=== PATIENT | male | born 1965 | race Hispanic/Latino ===

== ENCOUNTER → 2018-05-24 | Day surgery (SDC) | payer BC ==
[~2018-05-24] MED LIST: FENTANYL CITRATE/PF 100MCG/2 ML INJ ONE; GLIPIZIDE5 MG PO; HYOSCYAMINE SULFATE 0.5 MG/ML AMP ONE; LISINOPRIL2.5 MG PO; METFORMIN HCL500 MG PO; MIDAZOLAM HCL 2 MG/2 ML VIAL ONE; PROPOFOL IV EMULSION 10 MG/ML 50 ML VIAL ONE; SIMVASTATIN20 MG PO
--- NOTE | 2018-05-24 15:46 | Operative Report ---
DATE OF PROCEDURE: May 24, 2018 REFERRING PHYSICIAN: Dr. Lauri Cheung PROCEDURE PERFORMED: Colonoscopy and polypectomy. INDICATION FOR COLONOSCOPY: Colorectal cancer screening. MEDICATION: Patient was done under MAC. Please see anesthesiologist's note. PROCEDURE: With the patient in the left lateral decubitus position, the flexible fiberoptic Olympus colonoscope was inserted into the rectum with ease and advanced all the way to the cecum. Two polyps were snared from the cecum. The ascending colon appeared to be within normal limits. One polyp was hot biopsied from the transverse colon. The descending grossly appeared to be within normal limits. One polyp was hot biopsied from the sigmoid. One polyp was hot biopsied from the rectum. The scope was then retroflexed into the distal rectum, and small internal hemorrhoids were noted, none of which was actively bleeding. The scope was then straightened out. The rectosigmoid area as well as the distal rectal area were decompressed. The scope was subsequently withdrawn. Patient tolerated the procedure well. IMPRESSION 1. Cecal polyps times 2, snared. 2. Transverse colon polyp, hot biopsied. 3. Sigmoid colon polyp, hot biopsied. 4. Rectal polyp, hot biopsied. 5. Internal hemorrhoids, none actively bleeding. PLAN: Follow up histology. Initiate high-fiber, low-fat diet. Initiate high-fiber supplement. Patient will need a followup colonoscopy in 3 years. Job#: [id number] cc:ELENA CHEUNG DO
== END | disposition home or self-care (01) ==
LOC: ENDO 06:53
PROVIDERS: ATTEND Internal Medicine Gastroenterology
DX: Z12.11 Encounter for screening for malignant neoplasm of colon (principal); R12 Heartburn; I10 Essential (primary) hypertension; E78.5 Hyperlipidemia, unspecified; D12.0 Benign neoplasm of cecum; K63.5 Polyp of colon; K64.8 Other hemorrhoids; K62.1 Rectal polyp
CPT/HCPCS: 36415; 45384; 45385; 82948; 93005; J1980; J2250; 45378

== ENCOUNTER 2018-05-27 08:16 | Inpatient (IN) | payer BC ==
[~2018-05-27] VITALS: Ht 175.3 cm; Wt 85.4 kg
[2018-05-27] VITALS (41 sets, daily range): BP systolic 92–142; BP diastolic 55–87
[~2018-05-27 08:16] MED LIST changes: -FENTANYL CITRATE/PF 100MCG/2 ML INJ ONE; -HYOSCYAMINE SULFATE 0.5 MG/ML AMP ONE; -MIDAZOLAM HCL 2 MG/2 ML VIAL ONE; -PROPOFOL IV EMULSION 10 MG/ML 50 ML VIAL ONE
[2018-05-27] MEDS ORDERED: SODIUM CHLORIDE 0.9% 1000ML 1,000 ML ONE ×2 (08:42→08:46)
[2018-05-27] MEDS ORDERED: PANTOPRAZOLE 40 MG 10ML VIAL IV STA (08:43)
[2018-05-27] MEDS ORDERED: SODIUM CHLORIDE 0.9% 1000ML 1,000 ML IV SCH (08:45)
[2018-05-27] MEDS ORDERED: SODIUM CHLORIDE 0.9% 1000ML 1,000 ML IV ONE ×2 (08:51→09:00)
[2018-05-27 08:56] LABS: BASOPHILS % 0.2 % (0.0-1.0); EOSINOPHILS # (AUTO) 0.1 (0.0-0.4); EOSINOPHILS % 0.6 % (0.0-6.0); HEMATOCRIT 25.6 % (38.2-49.6); LYMPHOCYTES # (AUTO) 1.8 (1.0-3.2); MEAN CORPUSCULAR HEMOGLOBIN 29.2 pg (28-32); MEAN CORPUSCULAR HGB CONC 35.2 g/dL (31-35); MEAN CORPUSCULAR VOLUME 83.1 fL (81-99); MONOCYTES # (AUTO) 0.6 (0.2-0.8); NEUTROPHILS % 73.5 % (38.7-80.0); PLATELET COUNT 219 x10e3/uL (140-360); RED BLOOD COUNT 3.08 x10e6/uL (4.3-5.7); RED CELL DISTRIBUTION WIDTH 12.7 % (11.7-14.4)
[2018-05-27 09:05] LABS: INR 1.09; PARTIAL THROMBOPLASTIN TIME 22.5 seconds (23.8-35.5); PROTHROMBIN TIME 13.3 seconds (11.9-14.5)
[2018-05-27 09:13] LABS: ALANINE AMINOTRANSFERASE 25 IU/L (0-55); ALBUMIN 3.3 g/dL (3.5-5.0); ALBUMIN/GLOBULIN RATIO 1.3 (0.8-2.0); ALKALINE PHOSPHATASE 72 IU/L (40-150); BLOOD UREA NITROGEN 18 mg/dL (7-26); BUN/CREATININE RATIO 23 (6-25); CALCIUM 8.2 mg/dL (8.4-10.2); CARBON DIOXIDE 23 mmol/L (22-29); CHLORIDE 105 mmol/L (98-107); CREATINE KINASE 55 IU/L (30-200); CREATININE, SERUM 0.78 mg/dL (0.72-1.25); EST GLOMERULAR FILTRATION RATE > 60 ML/MIN (60-); GLUCOSE 254 mg/dL (74-118); MAGNESIUM 1.5 MG/DL (1.3-2.1); SODIUM 136 mmol/L (136-145)
[2018-05-27] MEDS ORDERED: PHYTONADIONE 10 MG/ML AMP SC ONE (10:45)
[2018-05-27] MEDS ORDERED: SODIUM CHLORIDE 0.9% 250ML 250 ML IV ONE (10:45)
[2018-05-27] MEDS ORDERED: PIPER-TAZ 3.375 GM 50 ML IV ONE (11:00)
[2018-05-27] MEDS: SODIUM CHLORIDE 0.9% 1000ML 1,000 ML IV SCH ×3 (13:15→20:37)
--- NOTE | 2018-05-27 18:23 | History and Physical ---
HISTORY OF PRESENT ILLNESS: Patient is a 52-year-old male who had a past medical history positive for diabetes mellitus mainly, no other significant medical past medical history. Apparently had a colonoscopy done on Saturday by Dr. Frankie Munroe. He was doing well but then yesterday and today he started seeing blood in the stool, feeling weak and he came to the emergency room. REVIEW OF SYSTEMS: CARDIOVASCULAR: No chest pain or palpitation. RESPIRATORY: No shortness of breath. No cough. GASTROINTESTINAL: No nausea, no vomiting, no diarrhea. He had blood in the stools. No abdominal pain. GENITOURINARY: No frequency or dysuria. ALLERGIES: NOT ALLERGIC TO ANY MEDICATION. SOCIAL HISTORY: He does not smoke and he does not drink. PAST MEDICAL HISTORY: Positive for diabetes mellitus type 2. PHYSICAL EXAMINATION: VITAL SIGNS: Blood pressure 115/69, temperature 99.2, heart rate 87 per minute, respiratory rate 18 per minute. Oxygen saturation 100%. HEART: Regular rhythm. No murmur. No extra sounds. LUNGS: Clear bilaterally. ABDOMEN: Soft. Nontender, nondistended, no visceromegaly. EXTREMITIES: Show no evidence of cyanosis, edema or trauma. LABORATORY DATA: Blood work BMP showed sodium 136, potassium 4.0, chloride 105. CO2 23. BUN 18, creatinine 0.78. Glucose 254. On the CBC white blood count 9.53, hemoglobin 9.0, hematocrit 25.6, platelet count 219,000. PT 13.3. INR 1.09. PTT 22.5. AST 14, ALT 25. Total bilirubin 0.5, alkaline phosphatase of 72. EKG showed normal sinus rhythm, no evidence of any ST segment elevation or depression. FINAL IMPRESSION: 1. Rectal bleed status post colonoscopy, status post polypectomy. 2. Acute anemia. 3. Diabetes mellitus type 2. PLAN OF TREATMENT: Continue monitoring the hemoglobin and hematocrit. Continue normal saline 125 mL an hour. Protonix 40 mg IV daily. Consult Dr. Frankie Munroe. Transfuse if hemoglobin goes below 7.0. The patient is in the intensive care unit. The case has been discussed with nurses and with the admitting physician. Time Spent: 45 minutes. Job#: [id number]
[2018-05-27] MEDS: METFORMIN HCL 500 MG TAB PO SCH (18:30)
[2018-05-27 18:31] LABS: HEMOGLOBIN 7.6 g/dL (14.0-18.0)
[2018-05-27] MEDS: SIMVASTATIN 20 MG TAB PO SCH (21:12)
[2018-05-28] VITALS (90 sets, daily range): BP systolic 92–176; BP diastolic 53–128
[2018-05-28 02:24] LABS: HEMATOCRIT 24.7 % (38.2-49.6); HEMOGLOBIN 8.5 g/dL (14.0-18.0)
[2018-05-28] MEDS: SODIUM CHLORIDE 0.9% 1000ML 1,000 ML IV SCH ×3 (02:40→20:17)
[2018-05-28 07:48] LABS: HEMOGLOBIN 6.8 g/dL (14.0-18.0)
[2018-05-28] MEDS: METFORMIN HCL 500 MG TAB PO SCH ×2 (08:00→17:00)
[2018-05-28] MEDS: LISINOPRIL 10 MG TAB PO SCH (09:00)
[2018-05-28] MEDS: PANTOPRAZOLE 40 MG 10ML VIAL IV SCH (09:00)
[2018-05-28] MEDS ORDERED: SODIUM CHLORIDE 0.9% 250ML 250 ML IV ONE (09:00)
[2018-05-28] MEDS: ACETAMINOPHEN 325 MG TAB PO PRN ×2 (11:30→20:17)
--- NOTE | 2018-05-28 15:21 | Progress Note ---
DATE: May 28, 2018 INTERNAL MEDICINE PROGRESS NOTE SUBJECTIVE: The patient is still bleeding, but less than before. He is getting 2 units of blood because hemoglobin dropped to 6.8. PHYSICAL EXAM: VITAL SIGNS: Blood pressure 103/61. Temperature 99.8, heart rate 80 per minute. Respiratory rate 18 per minute. Oxygen saturation 98%. HEART: Regular rhythm. No murmur. No extra sounds. LUNGS: Clear bilaterally. ABDOMEN: Soft. Nontender, nondistended, no visceromegaly. EXTREMITIES: Show no evidence of cyanosis, edema or trauma. BLOOD WORK: We have BMP sodium 136, potassium 4.0, chloride 105, CO2 23, BUN 18, creatinine 0.78. Glucose 254. On the CBC white blood count 9.53, hemoglobin 6.8, hematocrit 20.0, platelet count 219,000. PT 13.3, INR 1.09. PTT 22.5. AST, ALT 25, total bilirubin 0.5, alkaline phosphatase 72. FINAL IMPRESSION: 1. Rectal bleeding. Status post polypectomy, most likely post polypectomy bleeding. 2. Acute anemia secondary to rectal bleeding. 3. Diabetes mellitus type 2. PLAN OF TREATMENT: Continue normal saline at 125 mL an hour. Protonix 40 mg IV daily. Lisinopril 5 mg daily. Simvastatin 20 mg daily. Metformin 1000 mg twice a day. Tylenol 350 mg p.o. q.4 h. as needed for pain or fever. We are going to repeat another CBC tomorrow after blood transfusion. Dr. Frankie Munroe, gastroenterology, is on the case. He will decide about colonoscopy if the bleeding does not stop. Job#: [id number]
[2018-05-28] MEDS ORDERED: DEXTROSE 50% SYRINGE 50 ML IV STA (17:57)
[2018-05-28] MEDS ORDERED: SODIUM BICARBONATE 8.4% INJ 50 ML SYR IV STA (17:57)
[2018-05-28] MEDS ORDERED: INSULIN REGULAR, HUMAN 100 UNIT/1 ML 3ML VIAL SQ ONE (18:00)
[2018-05-28] MEDS ORDERED: SOD POLYSTYRENE SULFONATE SUSP 15 GM/60 ML BTL PO ONE (18:00)
[2018-05-28] MEDS: SIMVASTATIN 20 MG TAB PO SCH (20:17)
[2018-05-28 20:45] LABS: HEMATOCRIT 27.7 % (38.2-49.6); HEMOGLOBIN 9.6 g/dL (14.0-18.0)
[2018-05-29] VITALS (50 sets, daily range): BP systolic 115–189; BP diastolic 52–108
[2018-05-29] MEDS: SODIUM CHLORIDE 0.9% 1000ML 1,000 ML IV SCH (02:00)
[2018-05-29 04:56] LABS: BASOPHILS % 0.3 % (0.0-1.0); EOSINOPHILS # (AUTO) 0.1 (0.0-0.4); EOSINOPHILS % 1.8 % (0.0-6.0); HEMATOCRIT 27.4 % (38.2-49.6); HEMOGLOBIN 9.6 g/dL (14.0-18.0); LYMPHOCYTES % 25.5 % (18.0-39.1); MEAN CORPUSCULAR HEMOGLOBIN 30.1 pg (28-32); MEAN CORPUSCULAR VOLUME 85.9 fL (81-99); MONOCYTES # (AUTO) 0.6 (0.2-0.8); MONOCYTES % 8.1 % (4.4-11.3); NEUTROPHILS # (AUTO) 5.1 (2.1-6.9); NEUTROPHILS % 63.7 % (38.7-80.0); PLATELET COUNT 172 x10e3/uL (140-360); RED BLOOD COUNT 3.19 x10e6/uL (4.3-5.7)
[2018-05-29] MEDS: METFORMIN HCL 500 MG TAB PO SCH ×2 (08:36→17:00)
[2018-05-29] MEDS: PANTOPRAZOLE 40 MG 10ML VIAL IV SCH (08:37)
[2018-05-29] MEDS: LISINOPRIL 10 MG TAB PO SCH (08:37)
[2018-05-29 18:45] LABS: HEMATOCRIT 29.9 % (38.2-49.6); HEMOGLOBIN 10.7 g/dL (14.0-18.0)
--- NOTE | 2018-05-29 20:25 | Discharge Summary ---
HISTORY OF PRESENT ILLNESS: A 52-year-old male who had a colonoscopy done and apparently he started having some rectal bleeding. He was admitted to ICU and received blood transfusion because the hemoglobin dropped below 7.0. The patient's last hemoglobin was 9.6. He is doing better, tolerating a diet. No more rectal bleeding. He is going to be transferred to regular medical floor and hopefully tomorrow we can discharge him home. PHYSICAL EXAM: VITAL SIGNS: Blood pressure 157/82. Temperature 97.9, heart rate 71 per minute, respiratory rate 20 per minute. Oxygen saturation 100%. HEART: Regular rhythm. No murmur. No extra sounds. LUNGS: Clear bilaterally. ABDOMEN: Soft. EXTREMITIES: Show no evidence of cyanosis, edema or trauma. On the BMP sodium 136, potassium 4.0, chloride 105. CO2 23. BUN 18. Creatinine 0.78. Glucose 254. On the CBC white blood count 7.83, hemoglobin 9.6, hematocrit 27.4, platelet count 172,000. PT 13.3. INR 1.09. PTT 22.5. AST 14. ALT 25. Total bilirubin 0.5, alkaline phosphatase 72. FINAL IMPRESSION: 1. Rectal bleeding. 2. Acute anemia secondary to rectal bleeding. 3. Hypertension. 4. Diabetes mellitus. PLAN OF TREATMENT: He is going to be discharged home with lisinopril 10 mg daily. Zocor 20 mg daily. Metformin 1000 mg twice a day. Protonix 40 mg daily and diabetic diet. He is going to be transferred to the medical floor and hopefully tomorrow he can go home if okay with Dr. Frankie Munroe. KENDRA FORRESTER MD Job#: [id number]
[2018-05-29] MEDS: SIMVASTATIN 20 MG TAB PO SCH (21:41)
[2018-05-30 00:34] VITALS: BP 148/80
[2018-05-30 04:32] VITALS: BP 130/78
[2018-05-30 05:06] LABS: BASOPHILS % 0.1 % (0.0-1.0); EOSINOPHILS # (AUTO) 0.1 (0.0-0.4); EOSINOPHILS % 1.4 % (0.0-6.0); HEMATOCRIT 28.1 % (38.2-49.6); HEMOGLOBIN 9.8 g/dL (14.0-18.0); LYMPHOCYTES # (AUTO) 1.7 (1.0-3.2); LYMPHOCYTES % 20.1 % (18.0-39.1); MEAN CORPUSCULAR HEMOGLOBIN 30.1 pg (28-32); MEAN CORPUSCULAR HGB CONC 34.9 g/dL (31-35); MEAN CORPUSCULAR VOLUME 86.2 fL (81-99); MONOCYTES # (AUTO) 0.6 (0.2-0.8); MONOCYTES % 7.3 % (4.4-11.3); NEUTROPHILS # (AUTO) 5.9 (2.1-6.9); NEUTROPHILS % 70.6 % (38.7-80.0); PLATELET COUNT 205 x10e3/uL (140-360); RED BLOOD COUNT 3.26 x10e6/uL (4.3-5.7); RED CELL DISTRIBUTION WIDTH 13.3 % (11.7-14.4)
[2018-05-30 09:00] VITALS: BP 141/85
[2018-05-30] MEDS ORDERED: LISINOPRIL 10 MG TAB PO SCH (09:00)
[2018-05-30 09:02] VITALS: BP 141/85
[2018-05-30] MEDS: METFORMIN HCL 500 MG TAB PO SCH ×2 (09:04→17:31)
[2018-05-30] MEDS: PANTOPRAZOLE 40 MG 10ML VIAL IV SCH (09:04)
[2018-05-30 11:50] VITALS: BP 164/96
[2018-05-30 12:01] LABS: HEMATOCRIT 29.5 % (38.2-49.6); HEMOGLOBIN 10.4 g/dL (14.0-18.0)
[2018-05-30 16:36] VITALS: BP 160/90
--- NOTE | 2018-05-30 19:49 | Discharge Summary ---
HISTORY OF PRESENT ILLNESS: The patient is a 52-year-old male with past medical history positive for hypertension and diabetes who came here with rectal bleeding. He had a colonoscopy done recently. The patient required 2 units of blood transfusion because of drop in hemoglobin. Hemoglobin has been stable at 10.4, no more rectal bleeding. Dr. Frankie Munroe, gastroenterology, saw the patient and the bleeding stopped. He does not need any more colonoscopy. He is going home today. PHYSICAL EXAMINATION VITAL SIGNS: Blood pressure 164/96, temperature 97.3, heart rate 105 per minute, respiratory rate 20 per minute. Oxygen saturation 98%. HEART: Regular rhythm. No murmur. No extra sounds. LUNGS: Clear bilaterally. ABDOMEN: Soft. On the BMP sodium 136, potassium 4.0, chloride 105, CO2 23, BUN 18, creatinine 0.78, glucose 254. On the CBC white blood count 8.34, hemoglobin 10.4, hematocrit 29.5 and platelet count 205,000. PT 13.3, INR 1.09, PTT 22.5, AST 14, ALT 25. Total bilirubin 0.5 and alkaline phosphatase 72. FINAL IMPRESSION: 1. Rectal bleed status post polypectomy, which is resolved. 2. Acute anemia secondary to colonic bleed. 3. Hypertension. 4. Diabetes mellitus type 2. PLAN OF TREATMENT: Continue with simvastatin 20 mg daily, [id number] mg twice a day, lisinopril 10 mg daily. Follow up with me in a week and follow up with in a week. KENDRA FORRESTER MD Job#: [id number]
[2018-05-31] MEDS ORDERED: GLIPIZIDE 5 MG TAB PO SCH (09:00)
== END 2018-05-30 19:02 | disposition home or self-care (01) | DRG 920 ==
LOC: ER 08:16 → ERHOLD 10:47 → UNDOADMIN 10:52 → ERHOLD 10:52 → ICU 14:11 → MED/SURG2 05-29 20:35
PROVIDERS: ADMIT Internal Medicine; ATTEND Internal Medicine
PROC: 30233N1 Transfusion of Nonautologous Red Blood Cells into Peripheral Vein, Percutaneous Approach (ICD-10-PCS; principal; 2018-05-28)
CPT/HCPCS: 36415; 36430; 74176; 80053; 82550; 82553; 82948; 83735; 84484; 85014; 85018; 85025; 85610; 85730; 86850; 86900; 86920; 93005; 96361; 99284; J2543; J3430; J7030; J7050; P9016